=== PATIENT | male | born 1955 | race Two or more races ===

== ENCOUNTER 2025-07-26 14:54 | Inpatient (IN) | payer MEDICARE ==
[~2025-07-26] VITALS: Ht 177.8 cm; Wt 90.7 kg
[2025-07-26 15:30] LABS: PLATELET COUNT (AUTO) 318 K/uL (150-450); RED BLOOD CELL COUNT(AUTO) 4.19 MIL/uL (4.5-6.0); RED CELL DISTRIBUTION WIDTH 15.0 % (11.5-15.0); WHITE BLOOD COUNT (AUTO) 8.6 K/uL (4.3-11.0)
[2025-07-26 15:42] LABS: CALCIUM, SERUM 8.8 mg/dL (8.5-10.1); CREATININE 1.2 mg/dL (0.6-1.3); SODIUM SERUM 142 mmol/L (136-145); UREA NITROGEN, BLOOD 17 mg/dL (7-18)
[2025-07-26 15:55] LABS: ASPARTATE AMINOTRANSFERASE 19 U/L (15-37); NT-PRO BNP 152 pg/mL (0-125); TOTAL PROTEIN, SERUM 6.8 g/dL (6.4-8.2)
[2025-07-26] MEDS ORDERED: ROSU40TA PO (16:14)
[2025-07-26] MEDS ORDERED: LOSA50TA39 PO (16:14)
[2025-07-26] MEDS ORDERED: CARV3.122 PO (16:14)
[2025-07-26] MEDS ORDERED: PRAS10TA5 PO (16:14)
[2025-07-26] MEDS ORDERED: IOHEXOL-350 100 ML VIAL IV ONE (18:44)
[2025-07-26] MEDS ORDERED: IV NS 0.9% 250 ML IV ONE (18:44)
[2025-07-26] MEDS: METOPROLOL TARTRATE INJ 5 MG/5 ML AMPUL IVP PRN (18:50)
[2025-07-26] MEDS ORDERED: NITROGLYCERIN 0.4 MG/TAB BOTTLE ONE (19:04)
[2025-07-26] MEDS ORDERED: METOPROLOL TARTRATE INJ 5 MG/5 ML AMPUL ONE ×2 (19:05→19:14)
[2025-07-26] MEDS: NITROGLYCERIN 0.4 MG/TAB BOTTLE SL ONE (19:17)
[2025-07-26] MEDS ORDERED: ONDANSETRON HCL/PF 4 MG/2 ML VIAL IVP PRN (21:30)
[2025-07-26] MEDS ORDERED: ACETAMINOPHEN 325 MG TABLET PO PRN (21:30)
[2025-07-26] MEDS ORDERED: ENOXAPARIN SODIUM 40 MG/0.4 ML DISP.SYRIN SQ SCH (21:30)
[2025-07-26] MEDS: ENOXAPARIN SODIUM 100 MG/ML DISP.SYRIN SQ SCH (21:39)
[2025-07-26] MEDS ORDERED: ENOXAPARIN SODIUM 100 MG/ML DISP.SYRIN SQ ONE (21:39)
[2025-07-26 22:00] VITALS: BP 153/92; TEMP 97.5; O2SAT 99
[2025-07-26] MEDS: ATORVASTATIN 10 MG TABLET PO SCH (22:00)
[2025-07-27] VITALS (8 sets, daily range): BP systolic 118–156; BP diastolic 69–95; TEMP 97.5–98.7; O2SAT 96–99
[2025-07-27 06:50] LABS: PLATELET COUNT (AUTO) 295 K/uL (150-450); RED BLOOD CELL COUNT(AUTO) 4.34 MIL/uL (4.5-6.0); RED CELL DISTRIBUTION WIDTH 14.8 % (11.5-15.0); WHITE BLOOD COUNT (AUTO) 10.3 K/uL (4.3-11.0)
[2025-07-27 06:58] LABS: CALCIUM, SERUM 8.9 mg/dL (8.5-10.1); CREATININE 1.1 mg/dL (0.6-1.3); PHOSPHORUS 3.4 mg/dL (2.5-4.9); SODIUM SERUM 142.0 mmol/L (136-145); UREA NITROGEN, BLOOD 15.0 mg/dL (7-18)
[2025-07-27] MEDS: ASPIRIN 325 MG TABLET PO ONE (08:56)
[2025-07-27] MEDS: CARVEDILOL 3.125 MG TABLET PO SCH (08:57)
[2025-07-27] MEDS: LOSARTAN POTASSIUM 50 MG TABLET PO SCH (08:57)
[2025-07-27] MEDS ORDERED: HEPARIN INFUSION/D5W 500 ML IV PRN (09:00)
[2025-07-27] MEDS: NICOTINE PATCH (21MG) 21 MG PATCH.TD24 TD SCH (09:00)
[2025-07-27] MEDS ORDERED: LORAZEPAM 1 MG TABLET PO PRN (09:00)
[2025-07-27] MEDS: FOLIC ACID 1 MG TABLET PO SCH (09:19)
[2025-07-27] MEDS: THIAMINE HCL 100 MG TABLET PO SCH (09:19)
[2025-07-27 10:43] LABS: INR 0.98 (0.91-1.10)
[2025-07-27] MEDS ORDERED: IODIXANOL 150 ML IV ONE (11:38)
[2025-07-27] MEDS ORDERED: NITROGLYCERIN IN 5 % DEXTROSE 250 ML IV ONE (11:38)
[2025-07-27] MEDS ORDERED: LIDOCAINE HCL/MPF 1% 30 ML VIAL IJ ONE (11:38)
[2025-07-27] MEDS ORDERED: IV SET PRIMARY PUMP SET 1 EA INFUS.SET MC ONE (11:39)
[2025-07-27] MEDS ORDERED: IV NS 0.9% 1,000 ML ONE (11:39)
[2025-07-27] MEDS ORDERED: MIDAZOLAM HCL 2 MG/2ML VIAL ONE (12:50)
[2025-07-27] MEDS ORDERED: FENTANYL PF 100MCG/2ML AMPUL ONE (12:50)
[2025-07-27] MEDS: PRASUGREL HCL 5 MG TABLET PO SCH (17:04)
[2025-07-28] VITALS: BP 134/79; TEMP 98.4; O2SAT 97
[2025-07-28 04:00] VITALS: BP 136/84; TEMP 98.1; O2SAT 96
[2025-07-28 06:52] LABS: CALCIUM, SERUM 8.4 mg/dL (8.5-10.1); CREATININE 1.2 mg/dL (0.6-1.3); UREA NITROGEN, BLOOD 15.0 mg/dL (7-18)
[2025-07-28 06:55] LABS: PLATELET COUNT (AUTO) 305 K/uL (150-450); RED BLOOD CELL COUNT(AUTO) 4.20 MIL/uL (4.5-6.0); RED CELL DISTRIBUTION WIDTH 15.0 % (11.5-15.0); WHITE BLOOD COUNT (AUTO) 9.4 K/uL (4.3-11.0)
[2025-07-28 07:09] LABS: SODIUM SERUM 142.0 mmol/L (136-145)
[2025-07-28 08:00] VITALS: BP 134/78; TEMP 97.9; O2SAT 98
[2025-07-28] MEDS ORDERED: ASPI-1420 PO (09:17)
[2025-07-28] MEDS: ASPIRIN EC 81 MG TABLET.DR PO SCH (09:31)
[2025-07-28 12:00] VITALS: BP 106/68; TEMP 97.7; O2SAT 97
== END 2025-07-28 14:42 | disposition home or self-care (01) | DRG 282 ==
LOC: ER 15:00 → TELE1 21:06
PROVIDERS: ADMIT Internal Medicine; ATTEND Internal Medicine
PROC: 4A023N7 Measurement of Cardiac Sampling and Pressure, Left Heart, Percutaneous Approach (ICD-10-PCS; principal; 2025-07-27)
PROC: B211YZZ Fluoroscopy of Multiple Coronary Arteries using Other Contrast (ICD-10-PCS; 2025-07-27)
PROC: B34HZZZ Ultrasonography of Right Upper Extremity Arteries (ICD-10-PCS; 2025-07-27)
DX: I21.4 Non-ST elevation (NSTEMI) myocardial infarction (principal); I25.41 Coronary artery aneurysm; I10 Essential (primary) hypertension; F10.20 Alcohol dependence, uncomplicated; E78.5 Hyperlipidemia, unspecified; I25.10 Atherosclerotic heart disease of native coronary artery without angina pectoris; Y90.9 Presence of alcohol in blood, level not specified; Z95.5 Presence of coronary angioplasty implant and graft; F17.210 Nicotine dependence, cigarettes, uncomplicated
CPT/HCPCS: 36415; 71045-TC; 75574; 80048-TC; 80076-TC; 83735-TC; 83880; 84100-TC; 84484-TC; 85025-TC; 85610-TC; 86850-TC; 93307-TC; 97112-TC; 97116-TC; 97530-TC; A4223; G0378; J1644; J1650; J2250; J3010; J3490; J7030; J7050; Q9967